=== PATIENT | male | born 1990 | race African-American/Black ===

== ENCOUNTER 2023-02-26 04:08 | Emergency (ER) | payer MEDICAID, OTHER ==
[~2023-02-26] VITALS: Ht 175.3 cm; Wt 73.0 kg
[2023-02-26 04:13] VITALS: BP 142/86; PULSE 95; RESP 18; TEMP 98.3; O2SAT 100
== END 2023-02-26 06:25 | disposition home or self-care (01) ==
LOC: ER 04:08
DX: F10.129 Alcohol abuse with intoxication, unspecified (principal); Y90.0 Blood alcohol level of less than 20 mg/100 ml
CPT/HCPCS: 99283